=== PATIENT | female | born 1930 | race Caucasian/White ===

== ENCOUNTER 2018-04-13 08:36 | Observation (INO) | payer OTHER ==
[~2018-04-13] VITALS: Ht 160 cm; Wt 78.5 kg
[~2018-04-13 08:36] MED LIST: ASPIR 8181 MG PO; FISH OIL 1,2001 EAC1 PO; GABAPENTIN300 MG PO; LASIX20 MG PO; LEVAQUIN500 MG PO; LEVEMIR100 UNIT/1 SC; LISINOPRIL10 MG PO; SYNTHROID100 MCG PO; VITAMIN D3400 UNI1 PO
[2018-04-13] MEDS ORDERED: ONDANSETRON HCL INJ 2 MG/ML VIAL IV STA (09:04)
[2018-04-13] MEDS ORDERED: SODIUM CHLORIDE 0.9% 500ML 500 ML IV STA (09:08)
[2018-04-13] MEDS ORDERED: MORPHINE SULFATE INJ 4 MG/ML INJ IV PRN (09:15)
[2018-04-13 09:23] LABS: BASOPHILS # (AUTO) 0.1 (0.0-0.1); BASOPHILS % 0.8 % (0.0-1.0); EOSINOPHILS # (AUTO) 0.1 (0.0-0.4); EOSINOPHILS % 1.7 % (0.0-6.0); HEMATOCRIT 39.3 % (34.2-44.1); HEMOGLOBIN 13.1 g/dL (12.0-16.0); LYMPHOCYTES % 25.3 % (18.0-39.1); MEAN CORPUSCULAR HEMOGLOBIN 30.8 pg (28-32); MEAN CORPUSCULAR HGB CONC 33.3 g/dL (31-35); MEAN CORPUSCULAR VOLUME 92.5 fL (81-99); MONOCYTES # (AUTO) 1.1 (0.2-0.8); MONOCYTES % 14.7 % (4.4-11.3); NEUTROPHILS # (AUTO) 4.5 (2.1-6.9); NEUTROPHILS % 57.2 % (38.7-80.0); PLATELET COUNT 294 x10e3/uL (140-360); RED BLOOD COUNT 4.25 x10e6/uL (3.6-5.1)
[2018-04-13 09:27] LABS: INR 1.05; PROTHROMBIN TIME 12.9 seconds (11.9-14.5)
[2018-04-13 09:28] LABS: PARTIAL THROMBOPLASTIN TIME 32.9 seconds (23.8-35.5)
[2018-04-13 09:38] LABS: ALANINE AMINOTRANSFERASE 14 IU/L (0-55); ALBUMIN 3.5 g/dL (3.5-5.0); ALBUMIN/GLOBULIN RATIO 0.8 (0.8-2.0); ALKALINE PHOSPHATASE 69 IU/L (40-150); BLOOD UREA NITROGEN 17 mg/dL (7-26); BUN/CREATININE RATIO 15 (6-25); CALCIUM 9.5 mg/dL (8.4-10.2); CARBON DIOXIDE 25 mmol/L (22-29); CHLORIDE 101 mmol/L (98-107); CREATINE KINASE 58 IU/L (29-168); EST GLOMERULAR FILTRATION RATE 47 ML/MIN (60-); GLUCOSE 183 mg/dL (74-118); LIPASE 16 U/L (8-78); SODIUM 138 mmol/L (136-145)
--- NOTE | 2018-04-13 10:20 | Diagnostic Imaging Report ---
PROCEDURE:X-RAY RIGHT SHOULDER, COMPLETE COMPARISON:None. INDICATIONS:PAIN IN THE NECK RADIATING TO RIGHT SHOULDER FINDINGS: No evidence of fracture or malalignment. There are moderate to severe degenerative changes of the right glenohumeral and acromioclavicular joints with joint space narrowing and bony osteophyte formation. Apical pleural parenchymal opacity, likely sequela of prior granulomatous disease. 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 Dictated by: ZOYA SERRANO M.D. on 04/13/2018 at 10:26 Electronically approved by: ZOYA SERRANO M.D. on 04/13/2018 at 10:26
--- NOTE | 2018-04-13 10:31 | Diagnostic Imaging Report ---
EXAMINATION: CT of the cervical spine HISTORY: Neck pain radiating to the right shoulder COMPARISON: None available TECHNIQUE: Multidetector helical axial images were obtained without contrast from the foramen magnum to T1. The images were reconstructed using bone and soft tissue algorithms and were viewed in axial, sagittal and coronal planes. Dose modulation, iterative reconstruction, and/or weight based adjustment of the mA/kV was utilized to reduce the radiation dose to as low as reasonably achievable. FINDINGS: Alignment: Grade 1 anterolisthesis at C4-C5. Soft tissues: Normal. Partially visualized minimal pleural-parenchymal scarring in the lung apices. Vertebrae: Normal height and density. No acute fracture, infection or neoplasm. Chronic endplate degenerative changes C5-C7. Degenerative changes: C1-C2: Degenerative changes without stenoses C2-C3: Bilateral facet arthrosis without significant stenoses C3-C4: Bilateral uncovertebral and facet arthrosis. Moderate foraminal stenosis worst on the right. C4-C5: Disc osteophyte compresses formation, uncovertebral and facet arthrosis mainly on the right side. Moderate right and mild left foraminal stenosis. C5-C6: Disc ossify compress formation, uncovertebral and facet arthrosis. Mild canal and moderate foraminal stenosis. C6-C7: Disc osteophyte complex formation, uncovertebral and facet arthrosis. Moderate foraminal stenosis. C7-T1: Normal IMPRESSION: 1. Grade 1 anterolisthesis at C4-C5. 2. Moderate degenerative foraminal stenosis from C3-C4 to C6-C7 as detailed above. 3. Multilevel spondylosis with mild canal stenoses at C5-C6 and C6-C7. Signed by: Dr. Neelima Blackburn M.D. on 04/13/2018 10:28 AM
--- NOTE | 2018-04-13 14:21 | Diagnostic Imaging Report ---
PROCEDURE:CT ABDOMEN AND PELVIS WITH CONTRAST COMPARISON:[facility], CT, CT ABDOMEN/PELVIS W, 01/26/2015, 14:28. INDICATIONS:abdomen pain; one week of diarrhea and dark stools TECHNIQUE: Multidetector CT scanning of the abdomen and pelvis was performed after the administration of 100 cc of nonionic contrast. Coronal and sagittal reformations were obtained. Routine protocol performed. Radiation dose: Total DLP: 483.85 mGy-cm Estimated effective dose: (DLP x 0.015 x size factor mSv) CTDIvol has been reviewed. It is below the limits set by the Radiation Protocol Committee (RPC). FINDINGS: Lung bases: Mild bibasilar atelectasis. The heart is top normal in size. No pericardial or pleural effusions. Liver: Decreased attenuation suggestive steatosis Several low attenuating lesions are stable, measuring up to 18 mm consistent with cysts. No enhancing lesions. Scattered calcified granulomata are present. Biliary: A 2 mm linear calcification in the wall of the gallbladder appears to be new. No discrete intraluminal gallstones. No gallbladder wall thickening or pericholecystic inflammation. No intrahepatic or extra hepatic biliary ductal dilatation. Spleen: Normal in size and attenuation without mass. Pancreas: Diffuse fatty atrophy with multiple parenchymal cysts measuring up to 7 mm. This largest cyst is stable. There are no enhancing lesions. The pancreas duct is not dilated. Adrenal Glands: No mass. Kidneys: The symmetric enhancement. No enhancing lesions. Low-attenuation lesions in the left kidney measure up to 14 mm and are suggestive of cysts. Calculi in the left kidney on the previous exam no longer visualized. There is an extrarenal pelvis of the left kidney. Gastrointestinal: The stomach is collapsed and normal in appearance. Small bowel normal diameter with normal wall thickness. Large bowel contains fluid without dilatation or mucosal hyperemia. There is mural thickening of the sigmoid colon with multiple diverticula. No associated inflammation. The appendix is normal. Vasculature: The aorta is ectatic but not aneurysmally dilated. Calcifications are present throughout. Peritoneum/Retroperitoneum: No free fluid or fluid collection. Bladder: Well-distended and is normal. The ureters are normal in diameter throughout their course without filling defect. Reproductive organs: The uterus is absent. There are no adnexal masses. Musculoskeletal: Left hip prosthesis is stable alignment without associated fracture or lucency to suggest loosening. The bones are diffusely demineralized. There are multiple degenerative changes of the spine without compression deformities. No lytic or blastic lesions. Soft tissues: No evidence of mass or hernia. CONCLUSION: 1. Diverticulosis coli. No acute inflammation. No bowel obstruction. Normal appendix. 2. Hepatic steatosis. Stable hepatic cysts. 3. Cystic pancreas lesions appear stable. Periodic surveillance with MRI is recommended to confirm stability. 4. Intrarenal calculi in the left kidney are no longer visualized. There is no obstructive uropathy. Left renal cysts are stable. Dictated by: Amish Graham M.D. on 04/13/2018 at 14:27 Electronically approved by: Amish Graham M.D. on 04/13/2018 at 14:27
[2018-04-13 15:10] LABS: BASOPHILS # (AUTO) 0.1 (0.0-0.1); BASOPHILS % 0.7 % (0.0-1.0); EOSINOPHILS # (AUTO) 0.2 (0.0-0.4); EOSINOPHILS % 1.9 % (0.0-6.0); HEMATOCRIT 38.7 % (34.2-44.1); HEMOGLOBIN 12.6 g/dL (12.0-16.0); LYMPHOCYTES # (AUTO) 3.6 (1.0-3.2); LYMPHOCYTES % 41.1 % (18.0-39.1); MEAN CORPUSCULAR HEMOGLOBIN 30.6 pg (28-32); MEAN CORPUSCULAR HGB CONC 32.6 g/dL (31-35); MEAN CORPUSCULAR VOLUME 93.9 fL (81-99); MONOCYTES # (AUTO) 1.2 (0.2-0.8); NEUTROPHILS # (AUTO) 3.7 (2.1-6.9); NEUTROPHILS % 42.1 % (38.7-80.0); PLATELET COUNT 262 x10e3/uL (140-360); RED BLOOD COUNT 4.12 x10e6/uL (3.6-5.1)
--- NOTE | 2018-04-13 21:39 | Diagnostic Imaging Report ---
Tagged-RBC GI Bleed Study Clinical information: 87-year-old female with GI bleeding. Discussion: The patient's own red blood cells were labeled with 27 mCi of technetium-99m pertechnetate using the in vitro method (UltraTag). Dynamic images of the abdomen were obtained through 60 minutes. Distribution of tracer activity appears physiologic throughout the abdomen. No abnormal accumulation of tracer is seen within the gastrointestinal lumen. Impression: No scan evidence of active gastrointestinal bleeding at this time. Signed by: Dr Ct Gray MD on 04/13/2018 9:36 PM
[2018-04-13 22:24] LABS: HEMATOCRIT 36.5 % (34.2-44.1)
[2018-04-13] MEDS ORDERED: IOPAMIDOL 370 MG/ML 200 ML INFUS..BTL INJ ONE (22:26)
[2018-04-13] MEDS ORDERED: SODIUM CHLORIDE 0.9% 50ML 50 ML ONE (22:26)
--- NOTE | 2018-04-14 00:48 | Consultation ---
DATE OF CONSULTATION: April 14, 2018 GI CONSULTATION REFERRING PHYSICIAN: Liz Espinoza. REASON FOR CONSULTATION: GI bleeding, unspecified. HISTORY OF PRESENTING ILLNESS: An 88-year-old very pleasant white female with past medical history of type 2 diabetes, kidney stones, who contracted some viral gastroenteritis from her . She started having diarrhea. Somebody told her to take Pepto-Bismol. She started taking Pepto-Bismol. As a result of that, her watery stool becomes dark, although she was aware that Pepto-Bismol can turn the stool dark colored. She mainly came to the emergency room because of some pain in the right shoulder. GI is being consulted for evaluation of bloody diarrhea. Hemoglobin although remains stable from 12.6 to 12.0. No associated abdominal pain. No nausea, vomiting. Last colonoscopy many years ago. REVIEW OF SYSTEMS: Twelve-point system reviewed, symptomatology is limited as per history of present illness. PAST MEDICAL HISTORY: Type 2 diabetes, multiple UTIs, osteoarthritis. PAST SURGICAL HISTORY: Abdominal hysterectomy, bilateral total knee replacements, cystoscopies, lithotripsies for kidneys stones. FAMILY HISTORY: Noncontributory given her advanced age. SOCIAL HISTORY: No smoking, alcohol or any illicit drug use. ALLERGIES: SULFA. MEDICATIONS: Reviewed as per OCT. PHYSICAL EXAMINATION VITAL SIGNS: Temperature 98.2, pulse 72, respirations 20, blood pressure 141/51, oxygen saturation 95% on room air. GENERAL: Not in any acute distress. Oral mucosa is moist. Anicteric sclerae. CVS: S1, S2, regular. LUNGS: Bilaterally grossly clear. ABDOMEN: Soft, nondistended, nontender. No mass or hernia. Positive bowel sounds. EXTREMITIES: Warm. No leg edema. LABS: WBC is 8.76, hemoglobin 12.6, further dropped down to 12.0, hematocrit 38.7, platelet count 262,000. Electrolytes normal, BUN 17, creatinine 1.10. PT 12.9, INR 1.05. Stool occult blood negative. Nuclear GI bleeding scan is negative. IMPRESSION: Acute gastroenteritis which is self-limiting. Stool is dark colored secondary to use of Pepto-Bismol. No active gastrointestinal bleeding. PLAN: Supportive care. Consult orthopedics for right shoulder pain. No need to monitor serial hemoglobin. Continue clear liquid tonight and monitor stool. If hemoglobin further drops tomorrow then we may consider colonoscopy. At this point of time, I do not think patient needs any GI endoscopic evaluation. I thank Dr. Espinoza for allowing me to participate in the care of this patient. Job#: [id number] GELA
[2018-04-14 02:40] VITALS: BP 141/51
[2018-04-14 03:44] VITALS: BP 169/69
[2018-04-14 06:04] LABS: HEMATOCRIT 36.4 % (34.2-44.1); HEMOGLOBIN 11.9 g/dL (12.0-16.0)
[2018-04-14 07:08] VITALS: BP 157/70
[2018-04-14 07:50] VITALS: BP 153/70
[2018-04-14] MEDS ORDERED: PANTOPRAZOLE 40 MG 10ML VIAL IV SCH (09:00)
--- NOTE | 2018-04-14 09:09 | History and Physical ---
Patient placed on observation. PRIMARY CARE PHYSICIAN: Dr. Santos Cameron WELLNESS NURSE: Dr. Angel Ybarra CHIEF COMPLAINT: Rectal bleed. HISTORY: Patient is an 87-year-old female, came in with some rectal bleed. The patient is stable. She had history of diverticulosis. The patient is otherwise stable. Bleeding scan was negative. She is comfortable. The patient wants to go home today. PAST MEDICAL HISTORY: Diverticulosis, hypertension, diabetes, hypothyroidism, diabetic neuropathy. PAST SURGICAL HISTORY: Abdominal hysterectomy, bilateral total knee replacement, and kidney stone intervention. PAST SOCIAL HISTORY: Patient does not smoke or use alcohol. No recreational drug use. ALLERGIES: TO SULFA. HOME MEDICATIONS: List is reviewed. REVIEW OF SYSTEMS: No chest pain, no shortness of breath, no abdominal pain. PHYSICAL EXAMINATION: VITAL SIGNS: Temperature is 98, blood pressure 153/70, pulse rate is 80, respirations 18. GENERAL: The patient is not in acute distress. She is awake. HEENT: Normocephalic, atraumatic. Sclerae anicteric. NECK: Supple grossly. PULMONARY: Diminished breath sounds without any wheezing or rales. CARDIOVASCULAR: S1, S2. Regular rate and rhythm. ABDOMEN: Soft. Positive bowel sounds. Grossly nontender. Non-distention. EXTREMITIES: No cyanosis, clubbing, or edema. NEUROLOGIC: No gross focal deficit. LABORATORY: WBC is 8.8, hemoglobin is 12, hematocrit 36, platelets is 262,000. Sodium is 138, potassium 4, chloride 101, bicarb 25, BUN 17, creatinine 1.1, glucose is 183. IMPRESSION: Rectal bleed most likely secondary to diverticulosis. This is not new for the patient. She had endoscopy previously and Dr. Rojas is stating that the patient will not need another colonoscopy. She does have diverticulosis on computerized tomography scan. No abdominal mass. There is no bleeding on bleeding scan. PLAN: Discharge the patient home. MiraLAX 17 g b.i.d. Omeprazole 40 mg daily. Resume home medication. Job#: [id number]
--- NOTE | 2018-04-14 09:58 | Discharge Summary ---
PCP: Dr. Santos Cameron. FINAL DIAGNOSES 1. Diverticulosis. 2. Insignificant rectal bleed as evidenced with hemoglobin and hematocrit monitoring. SUMMARY: An 87-year-old female with some rectal bleed. Patient is stable. No further bleeding. She was a little constipated per patient. Patient is feeling comfortable now. She wanted to go home and I agree. She had a colonoscopy previously. CT scan showed that the patient has diverticulosis. The bleeding scan was negative. Discharge the patient home with MiraLAX and omeprazole. The patient to follow up with Dr. Santos Cameron next week. Job#: [id number]
--- NOTE | 2018-04-15 01:12 | Progress Note ---
DATE: April 14, 2018 SUBJECTIVE: Patient reports no abdominal pain. No further bowel movement while being in the hospital. REVIEW OF SYSTEMS GENERAL: No fever or chills. CV: No chest pain or palpitation. RESPIRATORY: No cough or expectoration. MEDICATIONS: Reviewed, as per OCT. PHYSICAL EXAMINATION VITAL SIGNS: Temperature 96.9, pulse 80, respirations 20, blood pressure 153/70, oxygen saturation 99% on room air. GENERAL: Not in any acute distress. Oral mucosa is moist. ABDOMEN: Soft, nondistended, nontender. No mass or hernia. Positive bowel sounds. LABS: Hemoglobin remains stable to 12.0. IMPRESSION: Acute gastroenteritis, resolved. Stool was darker due to use of Pepto-Bismol. PLAN: Patient can be discharged home from GI standpoint. Follow up in GI clinic in 2 weeks. Job#: [id number] GELA
== END 2018-04-14 10:00 | disposition home or self-care (01) ==
LOC: ER 08:36 → INTOOBSV 16:13 → ERHOLD 16:13 → MED/SURG 23:01
PROVIDERS: ADMIT Internal Medicine; ATTEND Internal Medicine
DX: K57.30 Diverticulosis of large intestine without perforation or abscess without bleeding (principal); K52.9 Noninfective gastroenteritis and colitis, unspecified; E11.9 Type 2 diabetes mellitus without complications; Z87.442 Personal history of urinary calculi; Z87.440 Personal history of urinary (tract) infections; Z96.653 Presence of artificial knee joint, bilateral; Z88.2 Allergy status to sulfonamides
CPT/HCPCS: 36415 ×2; 72125; 73030; 74177; 78278; 80053; 82270; 82550; 82553; 83605; 83690; 84484; 85014 ×2; 85018 ×2; 85025; 85610; 85730; 93005; 99284; A9512 ×2; G0378 ×2; J7040; Q9967

== ENCOUNTER 2021-01-06 13:43 | Emergency (ER) | payer OTHER ==
[~2021-01-06] VITALS: Ht 160 cm; Wt 78.5 kg
[2021-01-06 14:40] LABS: BASOPHILS % 0.5 % (0.0-1.0); HEMATOCRIT 37.5 % (34.2-44.1); HEMOGLOBIN 12.3 g/dL (12.0-16.0); LYMPHOCYTES # (AUTO) 1.4 (1.0-3.2); LYMPHOCYTES % 33.8 % (18.0-39.1); MEAN CORPUSCULAR HEMOGLOBIN 31.3 pg (28-32); MEAN CORPUSCULAR HGB CONC 32.8 g/dL (31-35); MEAN CORPUSCULAR VOLUME 95.4 fL (81-99); MONOCYTES # (AUTO) 0.8 (0.2-0.8); NEUTROPHILS # (AUTO) 1.9 (2.1-6.9); NEUTROPHILS % 44.2 % (38.7-80.0); PLATELET COUNT 251 x10e3/uL (140-360); RED BLOOD COUNT 3.93 x10e6/uL (3.6-5.1); RED CELL DISTRIBUTION WIDTH 13.1 % (11.7-14.4)
[2021-01-06 15:10] LABS: INR 0.86; PROTHROMBIN TIME 12.3 seconds (11.9-14.5)
[2021-01-06 15:11] LABS: PARTIAL THROMBOPLASTIN TIME 25.8 seconds (23.8-35.5)
[2021-01-06 15:15] LABS: CLARITY,URINE CLEAR (CLEAR); COLOR,URINE YELLOW (YELLOW)
[2021-01-06 15:16] LABS: KETONES,URINE NEGATIVE (NEGATIVE); LEUKOCYTE ESTERASE ,URINE SMALL (NEGATIVE); NITRITE,URINE NEGATIVE (NEGATIVE); PROTEIN,URINE DIPSTICK NEGATIVE (NEGATIVE); URINE UROBILINOGEN 0.2 mg/dL (0.2 - 1)
[2021-01-06 15:18] LABS: ALANINE AMINOTRANSFERASE 17 IU/L (0-55); ALBUMIN 3.6 g/dL (3.5-5.0); ALBUMIN/GLOBULIN RATIO 0.9 (0.8-2.0); ALKALINE PHOSPHATASE 59 IU/L (40-150); ANION GAP 17.7 mmol/L (8-16); BLOOD UREA NITROGEN 18 mg/dL (7-26); BUN/CREATININE RATIO 21 (6-25); CALCIUM 9.1 mg/dL (8.4-10.2); CARBON DIOXIDE 22 mmol/L (22-29); CHLORIDE 102 mmol/L (98-107); CREATINE KINASE 58 IU/L (29-168); CREATININE, SERUM 0.85 mg/dL (0.57-1.11); EST GLOMERULAR FILTRATION RATE > 60 ML/MIN (60-); GLUCOSE 116 mg/dL (74-118); POTASSIUM 4.7 mmol/L (3.5-5.1); SODIUM 137 mmol/L (136-145)
[2021-01-06 15:35] LABS: BACTERIA,URINE FEW /HPF; EPITHELIAL CELLS,URINE FEW /LPF
[2021-01-06] MEDS ORDERED: SODIUM CHLORIDE 0.9% 1000ML 1,000 ML IV STA (16:04)
[2021-01-06] MEDS ORDERED: CEFTRIAXONE SOD 250 MG VIAL IV ONE (16:15)
[2021-01-06] MEDS ORDERED: CEFTRIAXONE SOD 1 GM in SODIUM CHLORIDE 0.9% 50ML 50 ML IV ONE (16:30)
[2021-01-06] MEDS ORDERED: BAMLANIVIMAB / ETESEVIMAB 2,100 MG in SODIUM CHLORIDE 0.9% 250ML 250 ML IV ONE (16:45)
[2021-01-06] MEDS ORDERED: LORAZEPAM 1 MG TAB PO ONE (17:00)
== END 2021-01-06 20:11 | disposition home or self-care (01) ==
LOC: ER 13:47
DX: U07.1 COVID-19 (principal); R11.2 Nausea with vomiting, unspecified; R53.1 Weakness; N39.0 Urinary tract infection, site not specified; I10 Essential (primary) hypertension; E11.9 Type 2 diabetes mellitus without complications; E03.9 Hypothyroidism, unspecified; Z87.19 Personal history of other diseases of the digestive system
CPT/HCPCS: 36415; 71045; 80053; 81001; 82550; 82553; 83605; 83735; 84484; 85025; 85610; 85730; 87040; 87086; 87186; 93005; 99284; J0696; J7030; J7050